=== PATIENT | female | born 1935 | race Caucasian/White ===

== ENCOUNTER 2017-08-02 10:30 | Outpatient (RCR) | payer MEDICARE, BC ==
[~2017-08-02 10:30] MED LIST: ASPIRIN 32325 MG/TAB PO; B COMPLEX #11 TAB PO; CENTRUM SILVER1 CTB PO; CITRACAL + D CA1 TAB PO; LIPITOR20 MG PO; LOPRESSOR 225 MG/TAB PO; LUTEIN20 MG PO; NATURAL E400 IU PO; PERCOCET 325 MG1 TA2 PO; THE MEDICINE S200 M2 PO; VITAMIN C500 MG PO; WELLBUTRIN 100100 MG PO; XALATAN EYE DROPS OU
[2017-09-09] MEDS ORDERED: LIPITOR 40MG TA40 MG PO (12:14)
[2017-09-09] MEDS ORDERED: GLUCOSAMINE SU500 M2 PO (12:19)
[2017-09-09] MEDS ORDERED: RETIN-A CR0.1 20GM TP (12:20)
== END 2017-10-10 | disposition home or self-care (01) ==
LOC: WSPT
DX: M25.561 Pain in right knee (principal); G89.29 Other chronic pain
CPT/HCPCS: G8978-GP; G8979-GP

== ENCOUNTER → 2017-09-14 | Outpatient (CLI) | payer MEDICARE, BC ==
[~2017-09-14] VITALS: Ht 154.9 cm; Wt 55.1 kg
[~2017-09-14] MED LIST changes: +GLUCOSAMINE SU500 M2 PO; +LIPITOR 40MG TA40 MG PO; +RETIN-A CR0.1 20GM TP
[2017-09-14 08:26] VITALS: BP 165/67; PULSE 76
== END ==
LOC: COL.RAD 08:02
DX: R91.1 Solitary pulmonary nodule (principal); G93.9 Disorder of brain, unspecified
CPT/HCPCS: Q9967